=== PATIENT | female | born 1945 | race Caucasian/White ===

== ENCOUNTER 2021-04-19 15:38 | Emergency (ER) | payer MEDICARE ==
[~2021-04-19] VITALS: Ht 167.6 cm; Wt 80.0 kg
[2021-04-19] MEDS ORDERED: IBUPROFEN 400MG TABLET PO ONE (17:15)
[2021-04-19] MEDS ORDERED: ACETAMINOPHEN 325MG TABLET PO ONE (17:15)
[2021-04-19] MEDS ORDERED: TOPUD MT (17:57)
[2021-04-19] MEDS ORDERED: TETANUS, DIPHTHERIA, PERTUSSIS VAC/PF 0.5ML (>10YR OLD) IM ONE (18:00)
[2021-04-19 18:27] VITALS: BP 129/68
== END 2021-04-19 18:29 | disposition home or self-care (01) ==
LOC: ER 15:38
DX: S20.212A Contusion of left front wall of thorax, initial encounter (principal); S60.221A Contusion of right hand, initial encounter; V43.52XA Car driver injured in collision with other type car in traffic accident, initial encounter; Y93.89 Activity, other specified; Y92.410 Unspecified street and highway as the place of occurrence of the external cause
CPT/HCPCS: 71101; 73130; 90471; 90715; 93005; 99284